=== PATIENT | male | born 1940 | race Caucasian/White ===

== ENCOUNTER → 2017-10-31 | Outpatient (CLI) | payer MEDICARE | END | disposition home or self-care (01) | LOC: US 15:47 | DX: R60.0 Localized edema (principal) | CPT/HCPCS: 93971 ==

== ENCOUNTER → 2019-09-04 | Outpatient (CLI) | payer MEDICARE ==
[~2019-09-04] MED LIST: REGADENOSON 0.4 MG/5 ML DISP.SYRIN. IV ONE
--- NOTE | 2019-09-04 11:19 | CARD ---
MR#: [id number] Date of Study: 09/04/2019 Ordering Physician: KAYLIE WILLAMS, Referring Physician: KAYLIE WILLMAS, Tech: Iwona Samsonelizabeth APPROVED REPORT EXAM: Two-dimensional and M-mode echocardiogram with Doppler and color Doppler. Other Information Quality : AverageHR: 69bpm Technically limited study due to INDICATION Pre-Op Murmur 2D DIMENSIONS RVDd3.5 (2.9-3.5cm)Left Atrium(2D)3.2 (1.6-4.0cm) IVSd1.5 (0.7-1.1cm)Aortic Root(2D)3.6 (2.0-3.7cm) LVDd4.2 (3.9-5.9cm)LVOT Diameter2.0 (1.8-2.4cm) PWd1.3 (0.7-1.1cm)LVDs2.4 (2.5-4.0cm) FS (%) 44.1 %SV60.8 ml LVEF(%)75.6 (>50%) Aortic Valve AoV Peak Flyod.157.3cm/sAoV VTI29.6cm AO Peak GR.9.9mmHgLVOT Peak Floyd.116.4cm/s LVOT VTI 25.89cmAO Mean GR.5mmHg MYA (VMAX)1.33iw8NWQ (VTI)2.77cm2 AI P 1/2 Csed814bk Mitral Valve MV E Lsgggliv34.3cm/sMV DECEL QEUF638pt MV A Arouiiuj27.2cm/sMV E Mean Gr.2mmHg MV FZC33zbM/A Ratio0.9 MVA (PHT)4.16cm2 TDI E/Lateral E'12.2E/Medial E'15.8 Pulmonary Valve PV Peak Mjjpjftt08.1cm/sPV Peak Grad.3mmHg Tricuspid Valve TR P. Uzwdzvkc224lh/sRAP ANVXOJME9xnOy TR Peak Gr.97abEgWTFB49ieYb Pulmonary Vein S1 Lldqfqjn47.3cm/sD2 Dtvuggdn33.4cm/s PVa [id number] LEFT VENTRICLE The left ventricle is normal size. There is mild to moderate concentric left ventricular hypertrophy. The left ventricular systolic function is normal and the ejection fraction is within normal range. T he Ejection Fraction is 60%. There is normal LV segmental wall motion. Transmitral Doppler flow patte rn is Grade I-abnormal relaxation pattern. RIGHT VENTRICLE The right ventricle is borderline dilated. There is normal right ventricular wall thickness. The righ t ventricular systolic function is normal. ATRIA The left atrium size is normal. The right atrium size is normal. The interatrial septum is intact wit h no evidence for an atrial septal defect or patent foramen ovale as noted on 2-D or Doppler imaging. AORTIC VALVE The aortic valve is heavily calcified/thickened Doppler and Color Flow revealed mild aortic regurgita tion. Calculated aortic valve area is 2.6 cm2 with maximum pressure gradient of 10 mmHg and mean pres sure gradient of 6 mmHg. MITRAL VALVE The mitral valve is thickened but opens well. There is no evidence of mitral valve prolapse. There is no mitral valve stenosis. Doppler and Color-flow revealed trace mitral regurgitation. TRICUSPID VALVE The tricuspid valve is normal in structure and function. Doppler and Color Flow revealed trace to mil d tricuspid regurgitation with an estimated PAP of 31 mmHg. There is no tricuspid valve stenosis. PULMONIC VALVE The pulmonic valve is not well visualized. Doppler and Color Flow revealed trace pulmonic valvular re gurgitation. There is no pulmonic valvular stenosis. GREAT VESSELS The aortic root is normal in size. The ascending aorta is normal in size. The IVC is normal in size a nd collapses >50% with inspiration. PERICARDIAL EFFUSION There is no evidence of significant pericardial effusion. Critical Notification Critical Value: No <Conclusion> There is mild to moderate concentric left ventricular hypertrophy. The left ventricular systolic function is normal and the ejection fraction is within normal range. Th e Ejection Fraction is 60%. There is normal LV segmental wall motion. Doppler and Color Flow revealed mild aortic regurgitation. Signed by : Robbie Kaplan, Electronically Approved : 09/04/2019 11:19:00
--- NOTE | 2019-09-04 13:50 | RAD ---
MR#: [id number] Date of Study: 09/04/2019 Ordering Physician: KAYLIE WILLAMS, Referring Physician: CALE RESENDIZ Tech: MANDY Mazariegos ARRT (R) (N) APPROVED REPORT Test Type: Pharmacological Stress Nurse/Tech: Antonette Mcrae R.N. Test Indications: ore-op Cardiac History: htn Medications: See Electronic Medical Record Medical History: See Electronic Medical Record Resting ECG: SR Resting Heart Rate: 65 bpm Resting Blood Pressure: 147/76mmHg Pretest Chest Pain: No chest pain Nurse/Tech Notes S1S2, lungs CTA Consent: The procedure was explained to the patient in lay terms. Informed consent was witnessed. Brendon eout was entered into [employer]. History and Stress Test performed by RT Samreen Meeks) (N) Pharm. Details Pharmacologic stress testing was performed using 0.4mg per 5ml of regadenoson given intravenously ove r 7-10 seconds. Stress Symptoms No chest pain or symptoms. POST EXERCISE Reason for Termination: Infusion complete Max HR: 88 bpm Max Blood Pressure: 135/60mmHg Blood Pressure response to exercise: Normal blood pressure response during stress. Heart Rate response to exercise: wnl Chest Pain: No. Arrhythmia: No. ST Change: No. INTERPRETATION Stress EKG Conclusion: No evidence of stress induced EKG changes. Imaging Protocol IMAGE PROTOCOL: Rest Tc-99m/stress Tc-99m 1 day Rest: Stress: Viability: Radiopharm.Tc99m HwjnlkvmaWx94g Sestamibi Pfse00lNm 33mCi Img Date 09/04/2019 09/04/2019 Inj-Img Lqpf16xjo. 60min. Rest Admin Site:IV - Right ForearmAdministrator:MANDY Mazariegos ARRT (R)(N) Stress Admin Site: IV - Right ForearmAdministrator: RT Samreen Meeks)(N) STRESS DATA End Diast. Vol.52.0mlLVEDV index BSA26.0ml End Syst. Vol.11.0mlLVESV index BSA5.0ml Myocardial Mass98.0gEject. Fcntqtlt89.0% Stress Scores Regional WT2.00Summed WT7.00 Regional WM0.00Summed WM1.00 The rest and stress images show normal perfusion, normal contraction and thickening. LV Perf. Quant 17 Seg. SSS0.00 17 Seg. SRS0.00 17 Seg. SDS0.00 Stress Defect Extent (% LAD)0.00Rest Defect Extent (% LAD)0.00Rev. Defect Extent (% LAD)0.00 Stress Defect Extent (% LCX) 0.00Rest Defect Extent (% LCX)0.00Rev. Defect Extent (% LCX)0.00 Stress Defect Extent (% RCA)0.00Rest Defect Extent (% RCA)0.00Rev. Defect Extent (% RCA)0.00 Stress Defect Extent (% MAG)0.00Rest Defect Extent (% MAG)0.00Rev. Defect Extent (% MAG)0.00 Other Information Quality:Fair Risk Assessment: Low Risk Conclusion 1. No evidence of EKG changes with stress testing. 2. Normal perfusion at stress/rest. 3. Low risk study. 4. EF > 60%. Signed by : Robbie Kaplan, Electronically Approved : 09/04/2019 13:49:59
== END ==
LOC: NM 07:53
PROVIDERS: ATTEND Internal Medicine Cardiovascular Disease
DX: Z01.810 Encounter for preprocedural cardiovascular examination (principal); R01.1 Cardiac murmur, unspecified; I35.1 Nonrheumatic aortic (valve) insufficiency; I51.7 Cardiomegaly
CPT/HCPCS: 78452; 93017; 93306; A9500; J2785

== ENCOUNTER 2020-01-09 11:49 | Inpatient (IN) | payer MEDICARE ==
[~2020-01-09] VITALS: Ht 177.8 cm; Wt 77.0 kg
[2020-01-09 13:36] LABS: BASO % 1 % (0-3); EOS # 0.2 x10^3/uL (0.0-0.7); EOS % 3 % (0-3); HEMATOCRIT 35.9 % (39.0-53.0); HEMOGLOBIN 12.5 g/dL (13.0-17.5); LYMPH # 0.8 x10^3/uL (1.0-4.8); LYMPH % 15 % (24-48); MEAN CORPUSCULAR HEMOGLOBIN 32 pg (25-35); MEAN CORPUSCULAR HGB CONC 35 g/dL (31-37); MEAN CORPUSCULAR VOLUME 91 fL (79-100); MONO # 0.6 x10^3/uL (0.0-1.1); MONO % 11 % (0-9); NEUT # 3.9 x10^3/uL (1.8-7.7); NEUT % 70 % (31-73); PLATELET COUNT 253 x10^3/uL (140-400); RED BLOOD COUNT 3.95 x10^6/uL (4.30-5.70); RED CELL DISTRIBUTION WIDTH 13.3 % (11.5-14.5); WHITE BLOOD COUNT 5.6 x10^3/uL (4.0-11.0)
[2020-01-09 13:44] LABS: CALCIUM 8.9 mg/dL (8.5-10.1); CREATININE 2.2 mg/dL (0.7-1.3); GFR 29.1; POTASSIUM 4.4 mmol/L (3.5-5.1)
--- NOTE | 2020-01-09 13:46 | RAD ---
Chest, PA and Lateral: Technique: PA and lateral views of the chest were obtained. History: Dizziness. Comparison: None. Findings: The heart and pulmonary vasculature appear within normal limits. Mild hyperinflated lungs probably changes of COPD.. The pleural margins are clear. Impression: No acute chest process is seen. Electronically signed by: Alban Saavedra MD (01/09/2020 1:43 PM) [id number]
[2020-01-09] MEDS ORDERED: IV NORMAL SALINE 1000ML BAG 1,000 ML IV ONE (14:00)
--- NOTE | 2020-01-09 14:48 | RAD ---
Examination: CT ABDOMEN PELVIS WO CONTRAST History: Reason: weight loss, kidney failure, abdominal pain / Spl. Instructions: / History: Comparison/Correlation: None Findings: Axial images of the abdomen and pelvis were obtained without contrast. Sagittal and coronal reformatted images were provided. Large hiatal hernia is present. Mitral annular calcification is normal. Mild emphysematous involvement of the lung bases posteriorly. Liver, spleen, pancreas, adrenal glands, and kidneys are unremarkable. No hydronephrosis. No radiopaque thickening system calculi. Urinary bladder is unremarkable. Gallbladder fossa is unremarkable. Diverticulosis of the colon is present diffusely. No evidence of obstruction. No extraluminal gas. Significant disc space narrowing from L3 to S1 noted. Transitional L5 vertebra seen. Sacralization of L5. Room Marked diverticulosis of the colon is present. Appendix is not identified. No inflammatory change about the cecum. Significant calcific involvement of the abdominal aorta. Prostate gland is enlarged measuring 5 cm transverse. Bladder is unremarkable. Small inguinal hernias containing omental fat bilaterally noted. Sclerosis of femoral heads bilaterally noted in subchondral location there is an AVN. Femoral head contours are unremarkable. Impression: Diverticulosis. No acute inflammatory process or mass identified. Large hiatal hernia. Mild prostatomegaly. PQRS Compliance Statement: One or more of the following individualized dose reduction techniques were utilized for this examination: 1. Automated exposure control 2. Adjustment of the mA and/or kV according to patient size 3. Use of iterative reconstruction technique Electronically signed by: Uvaldo Paulino MD (01/09/2020 2:44 PM) [id number]
[2020-01-09 14:49] LABS: BILIRUBIN,URINE NEGATIVE (NEG); CLARITY,URINE CLEAR; COLOR,URINE YELLOW; NITRITE,URINE NEGATIVE (NEG); PROTEIN,URINE NEGATIVE (NEG-TRACE); UROBILINOGEN,URINE 0.2 mg/dL (0.2 mg/dL)
[2020-01-09 14:59] LABS: HYALINE CASTS, URINE FEW /HPF; RBC,URINE 0 /HPF (0-2); WBC,URINE OCC /HPF (0-4)
[2020-01-09 15:00] LABS: BACTERIA,URINE 0 /HPF (0-FEW)
[2020-01-09 15:28] LABS: ALBUMIN 3.8 g/dL (3.4-5.0); DIRECT BILIRUBIN 0.2 mg/dL (0.0-0.2); TOTAL BILIRUBIN 0.6 mg/dL (0.2-1.0); TOTAL PROTEIN 6.8 g/dL (6.4-8.2)
--- NOTE | 2020-01-09 16:46 | PHYS DOC ---
Past Medical History Past Medical History: GERD, High Cholesterol, Hypertension Past Surgical History: Appendectomy, Knee Replacement, Other Additional Past Surgical Histo: rotator cuff Smoking Status: Former Smoker Alcohol Use: Occasionally General Adult EDM: Chief Complaint: ABNORMAL LABS HPI: HPI: Patient is a 79 year old male who presents with weight loss, fatigue. Patient had a knee replacement done 1 month ago. Prior to that he was feeling very well. He states that after his knee replacement he has had a lot of fatigue. He has lost 20 pounds over the last month. He is lost his sense of taste and nothing sounds good to him. He has not been eating much. He does drink a large amount of water. He has been having intermittent diarrhea. He denies any shortness of breath, cough, URI symptoms, fever. He went to his primary care doctor yesterday who did labs and found that he had an acute kidney injury. Prior to his surgery he had labs drawn in November that showed that his creatinine at that time was 0.6. She found that his creatinine was 2.4 and so she was sending him here for evaluation. Patient states he has intermittent lightheadedness and blurred vision. He denies any abdominal pain. He does not have any chest pain. Review of Systems: Review of Systems: General: Denies fever, chills, sweats, fatigue Eyes: Denies drainage, blurred vision, eye redness HENT: Denies rhinorrhea, sore throat, earache Respiratory: Denies cough, shortness of breath, wheezing Cardiac: Denies edema, palpitations, chest pain GI: Denies abdominal pain, Nausea, vomiting MSK: Denies back pain, neck pain Skin: Denies rash, jaundice Neuro: Denies headache, dizziness Psychiatric: Denies SI/HI Heart Score: Risk Factors: Risk Factors: DM, Current or recent (<one month) smoker, HTN, HLP, family history of CAD, obesity. Risk Scores: Score 0 - 3: 2.5% MACE over next 6 weeks - Discharge Home Score 4 - 6: 20.3% MACE over next 6 weeks - Admit for Clinical Observation Score 7 - 10: 72.7% MACE over next 6 weeks - Early Invasive Strategies Current Medications: Current Medications Medications (Trade) Dose Ordered Sig/Ton Start Time Stop Time Status Last Admin Dose Admin Sodium Chloride 1,000 ml @ 0 mls/hr 1X ONCE 01/09/20 14:00 01/09/20 14:01 DC 01/09/20 14:53 999 MLS/HR Allergies: Allergies: Allergies Coded Allergies Type Severity Reaction Last Updated Verified No Known Drug Allergies 09/04/19 No Physical Exam: PE: General: Awake, alert, NAD. Well Nourished, well hydrated. Cooperative HEENT: Atraumatic, EOMI, PERRL, airway patent, moist oral mucosa Neck: Supple, trachea midline Respiratory: CTA bilaterally, normal effort, no wheezing/crackles CV: RRR, no murmur, cap refill <2 GI: Soft, nondistended, nontender, no masses MSK: No obvious deformities Skin: Warm, dry, intact Neuro: A&O x3, speech NL, sensory and motor grossly intact, no focal deficits Psych: Normal affect, normal mood, not suicidal or homicidal Current Patient Data: Labs: Laboratory Tests Test 01/09/20 13:20 01/09/20 14:41 White Blood Count 5.6 x10^3/uL (4.0-11.0) Red Blood Count 3.95 x10^6/uL (4.30-5.70) L Hemoglobin 12.5 g/dL (13.0-17.5) L Hematocrit 35.9 % (39.0-53.0) L Mean Corpuscular Volume 91 fL (79-100) Mean Corpuscular Hemoglobin 32 pg (25-35) Mean Corpuscular Hemoglobin Concent 35 g/dL (31-37) Red Cell Distribution Width 13.3 % (11.5-14.5) Platelet Count 253 x10^3/uL (140-400) Neutrophils (%) (Auto) 70 % (31-73) Lymphocytes (%) (Auto) 15 % (24-48) L Monocytes (%) (Auto) 11 % (0-9) H Eosinophils (%) (Auto) 3 % (0-3) Basophils (%) (Auto) 1 % (0-3) Neutrophils # (Auto) 3.9 x10^3/uL (1.8-7.7) Lymphocytes # (Auto) 0.8 x10^3/uL (1.0-4.8) L Monocytes # (Auto) 0.6 x10^3/uL (0.0-1.1) Eosinophils # (Auto) 0.2 x10^3/uL (0.0-0.7) Basophils # (Auto) 0.0 x10^3/uL (0.0-0.2) Sodium Level 130 mmol/L (136-145) L Potassium Level 4.4 mmol/L (3.5-5.1) Chloride Level 93 mmol/L (98-107) L Carbon Dioxide Level 27 mmol/L (21-32) Anion Gap 10 (6-14) Blood Urea Nitrogen 45 mg/dL (8-26) H Creatinine 2.2 mg/dL (0.7-1.3) H Estimated GFR (Cockcroft-Gault) 29.1 Glucose Level 100 mg/dL (70-99) H Calcium Level 8.9 mg/dL (8.5-10.1) Total Bilirubin 0.6 mg/dL (0.2-1.0) Direct Bilirubin 0.2 mg/dL (0.0-0.2) Aspartate Amino Transferase (AST) 14 U/L (15-37) L Alanine Aminotransferase (ALT) 19 U/L (16-63) Alkaline Phosphatase 60 U/L (46-116) Troponin I Quantitative < 0.017 ng/mL (0.000-0.055) Total Protein 6.8 g/dL (6.4-8.2) Albumin 3.8 g/dL (3.4-5.0) Lipase 99 U/L (73-393) Urine Collection Type Unknown Urine Color Yellow Urine Clarity Clear Urine pH 5.0 (<5.0-8.0) Urine Specific [place] 1.015 (1.000-1.030) Urine Protein Negative mg/dL (NEG-TRACE) Urine Glucose (UA) Negative mg/dL (NEG) Urine Ketones (Stick) Trace mg/dL (NEG) Urine Blood Negative (NEG) Urine Nitrite Negative (NEG) Urine Bilirubin Negative (NEG) Urine Urobilinogen Dipstick 0.2 mg/dL (0.2 mg/dL) Urine Leukocyte Esterase Negative (NEG) Urine RBC 0 /HPF (0-2) Urine WBC Occ /HPF (0-4) Urine Bacteria 0 /HPF (0-FEW) Urine Hyaline Casts Few /HPF Urine Mucus Mod /LPF Laboratory Tests 7/8/20 13:20 Laboratory Tests 01/09/20 13:20 Vital Signs: Vital Signs Date Time Temp Pulse Resp B/P (MAP) Pulse Ox O2 Delivery O2 Flow Rate FiO2 01/09/20 14:48 78 20 139/67 (91) 93 Room Air 01/09/20 13:15 97.7 97.7 EKG: EKG: [] Radiology/Procedures: Radiology/Procedures: [] Course & Med Decision Making: Course & Med Decision Making Pertinent Labs and Imaging studies reviewed. (See chart for details) Patient is a 79-year-old male who presents to the emergency room with weight loss and fatigue. Labs show the patient has an acute kidney injury that is likely prerenal. He was given fluids. He did have some hypotension yesterday which is now resolved. Labs are otherwise unremarkable. Patient's symptoms could be related to possible coronavirus. He does have a pending test from his primary care physician from yesterday. Will not swab him today given that he has a test currently pending. CT abdomen pelvis was ordered to rule out infection or a mass which would explain his weight loss. CT was negative for acute issues. Patient will be admitted for further care. Work up was rviewed and was remarkable for acute kidney injury. At this time, patient would benefit from further work up and management. Patient is not stable for discharge at this time. Results, vitals, interventions, and plan was discussed with the patient. Patient was given opportunity to ask any questions and are in agreement with plan for admission. Patient was discussed with admitting physician and bridge admission orders were placed. Further care will be managed by inpatient team. Keegan Disclaimer: Keegan Disclaimer: This electronic medical record was generated, in whole or in part, using a voice recognition dictation system. Departure Departure Impression: Primary Impression: Acute kidney injury Additional Impressions: Weight loss Loss of taste Disposition: ADMITTED INPATIENT Condition: STABLE Referrals: JOSE FLORES MD (PCP) Justicifation of Admission Dx: Justifications for Admission: Justification of Admission Dx: Yes Acute Renal Failure: 3-Fold Rise in Serum Crea MODESTA BETTS MD Jan 09, 2020 16:46
--- NOTE | 2020-01-09 17:14 | PDOC1 ---
History and Physical Date of Admission Date of Admission DATE: 01/09/20 TIME: 17:14 Identification/Chief Complaint Chief Complaint presented to ER with weight loss, fatigue. Patient had a knee replacement done 1 month ago. Prior to that he was feeling very well. // after his knee replacement he has had a lot of fatigue. He has lost 20 pounds over the last month. HAS lost his sense of taste and nothing sounds good to him. He has not been eating much. He does drink a large amount of water. He has been having intermittent diarrhea. denies any shortness of breath, cough, URI symptoms, fever. He went to his primary care doctor yesterday who did labs and found that he had an acute kidney injury. Prior to his surgery he had labs drawn in November that showed that his creatinine at that time was 0.6. She found that his creatinine was 2.4 and so she was sending him here for evaluation. // he has intermittent lightheadedness and blurred vision. He denies any abdominal pain. He does not have any chest pain. Past Medical History Past Medical History Past Medical History: GERD, High Cholesterol, Hypertension Past Surgical History: Appendectomy, Knee Replacement, Other Additional Past Surgical Histo: rotator cuff Smoking Status: Former Smoker Alcohol Use: Occasionally FHX HYPERLIPIDEMIA Family History Family History: High Cholestrol, Hypertension Social History Smoke: No ALCOHOL: none Drugs: None Current Problem List Problem List Problems Medical Problems: (1) Acute kidney injury Status: Acute (2) Loss of taste Status: Acute (3) Weight loss Status: Acute Current Medications Current Medications Current Medications Sodium Chloride 1,000 ml @ 0 mls/hr 1X ONCE IV Last administered on 01/09/20at 14:53; Start 01/09/20 at 14:00; Stop 01/09/20 at 14:01; Status DC Allergies Allergies: Coded Allergies: No Known Drug Allergies (Unverified , 09/04/19) ROS Review of System General: Denies fever, chills, sweats, fatigue Eyes: Denies drainage, blurred vision, eye redness HENT: Denies rhinorrhea, sore throat, earache Respiratory: Denies cough, shortness of breath, wheezing Cardiac: Denies edema, palpitations, chest pain GI: Denies abdominal pain, Nausea, vomiting MSK: Denies back pain, neck pain Skin: Denies rash, jaundice Neuro: Denies headache, dizziness 14 PT ROS OTHERWISE NEG Physical Exam Physical Exam General: Awake, alert, NAD. Well Nourished, well hydrated. Cooperative HEENT: Atraumatic, EOMI, PERRL, airway patent, moist oral mucosa Neck: Supple, trachea midline Respiratory: CTA bilaterally, normal effort, no wheezing/crackles CV: RRR, no murmur, cap refill <2 GI: Soft, nondistended, nontender, no masses MSK: No obvious deformities Skin: Warm, dry, intact Neuro: A&O x3, speech NL, sensory and motor grossly intact, no focal deficits Psych: Normal affect, normal mood, General: Alert, Oriented X3, Cooperative, No acute distress HEENT: Atraumatic, Mucous membr. moist/pink Lungs: Clear to auscultation Heart: RRR Rectal Exam: not examined Extremities: No clubbing, No cyanosis Neuro: Normal speech, Cranial nerves 3-12 NL Vitals Vitals Vital Signs Date Time Temp Pulse Resp B/P (MAP) Pulse Ox O2 Delivery O2 Flow Rate FiO2 01/09/20 14:48 78 20 139/67 (91) 93 Room Air 01/09/20 13:15 97.7 97.7 Labs Labs Laboratory Tests Test 01/09/20 13:20 01/09/20 14:41 White Blood Count 5.6 x10^3/uL (4.0-11.0) Red Blood Count 3.95 x10^6/uL (4.30-5.70) Hemoglobin 12.5 g/dL (13.0-17.5) Hematocrit 35.9 % (39.0-53.0) Mean Corpuscular Volume 91 fL (79-100) Mean Corpuscular Hemoglobin 32 pg (25-35) Mean Corpuscular Hemoglobin Concent 35 g/dL (31-37) Red Cell Distribution Width 13.3 % (11.5-14.5) Platelet Count 253 x10^3/uL (140-400) Neutrophils (%) (Auto) 70 % (31-73) Lymphocytes (%) (Auto) 15 % (24-48) Monocytes (%) (Auto) 11 % (0-9) Eosinophils (%) (Auto) 3 % (0-3) Basophils (%) (Auto) 1 % (0-3) Neutrophils # (Auto) 3.9 x10^3/uL (1.8-7.7) Lymphocytes # (Auto) 0.8 x10^3/uL (1.0-4.8) Monocytes # (Auto) 0.6 x10^3/uL (0.0-1.1) Eosinophils # (Auto) 0.2 x10^3/uL (0.0-0.7) Basophils # (Auto) 0.0 x10^3/uL (0.0-0.2) Sodium Level 130 mmol/L (136-145) Potassium Level 4.4 mmol/L (3.5-5.1) Chloride Level 93 mmol/L (98-107) Carbon Dioxide Level 27 mmol/L (21-32) Anion Gap 10 (6-14) Blood Urea Nitrogen 45 mg/dL (8-26) Creatinine 2.2 mg/dL (0.7-1.3) Estimated GFR (Cockcroft-Gault) 29.1 Glucose Level 100 mg/dL (70-99) Calcium Level 8.9 mg/dL (8.5-10.1) Total Bilirubin 0.6 mg/dL (0.2-1.0) Direct Bilirubin 0.2 mg/dL (0.0-0.2) Aspartate Amino Transf (AST/SGOT) 14 U/L (15-37) Alanine Aminotransferase (ALT/SGPT) 19 U/L (16-63) Alkaline Phosphatase 60 U/L (46-116) Troponin I Quantitative < 0.017 ng/mL (0.000-0.055) Total Protein 6.8 g/dL (6.4-8.2) Albumin 3.8 g/dL (3.4-5.0) Lipase 99 U/L (73-393) Urine Collection Type Unknown Urine Color Yellow Urine Clarity Clear Urine pH 5.0 (<5.0-8.0) Urine Specific [place] 1.015 (1.000-1.030) Urine Protein Negative mg/dL (NEG-TRACE) Urine Glucose (UA) Negative mg/dL (NEG) Urine Ketones (Stick) Trace mg/dL (NEG) Urine Blood Negative (NEG) Urine Nitrite Negative (NEG) Urine Bilirubin Negative (NEG) Urine Urobilinogen Dipstick 0.2 mg/dL (0.2 mg/dL) Urine Leukocyte Esterase Negative (NEG) Urine RBC 0 /HPF (0-2) Urine WBC Occ /HPF (0-4) Urine Bacteria 0 /HPF (0-FEW) Urine Hyaline Casts Few /HPF Urine Mucus Mod /LPF Laboratory Tests Test 01/09/20 13:20 01/09/20 14:41 White Blood Count 5.6 x10^3/uL (4.0-11.0) Red Blood Count 3.95 x10^6/uL (4.30-5.70) Hemoglobin 12.5 g/dL (13.0-17.5) Hematocrit 35.9 % (39.0-53.0) Mean Corpuscular Volume 91 fL (79-100) Mean Corpuscular Hemoglobin 32 pg (25-35) Mean Corpuscular Hemoglobin Concent 35 g/dL (31-37) Red Cell Distribution Width 13.3 % (11.5-14.5) Platelet Count 253 x10^3/uL (140-400) Neutrophils (%) (Auto) 70 % (31-73) Lymphocytes (%) (Auto) 15 % (24-48) Monocytes (%) (Auto) 11 % (0-9) Eosinophils (%) (Auto) 3 % (0-3) Basophils (%) (Auto) 1 % (0-3) Neutrophils # (Auto) 3.9 x10^3/uL (1.8-7.7) Lymphocytes # (Auto) 0.8 x10^3/uL (1.0-4.8) Monocytes # (Auto) 0.6 x10^3/uL (0.0-1.1) Eosinophils # (Auto) 0.2 x10^3/uL (0.0-0.7) Basophils # (Auto) 0.0 x10^3/uL (0.0-0.2) Sodium Level 130 mmol/L (136-145) Potassium Level 4.4 mmol/L (3.5-5.1) Chloride Level 93 mmol/L (98-107) Carbon Dioxide Level 27 mmol/L (21-32) Anion Gap 10 (6-14) Blood Urea Nitrogen 45 mg/dL (8-26) Creatinine 2.2 mg/dL (0.7-1.3) Estimated GFR (Cockcroft-Gault) 29.1 Glucose Level 100 mg/dL (70-99) Calcium Level 8.9 mg/dL (8.5-10.1) Total Bilirubin 0.6 mg/dL (0.2-1.0) Direct Bilirubin 0.2 mg/dL (0.0-0.2) Aspartate Amino Transf (AST/SGOT) 14 U/L (15-37) Alanine Aminotransferase (ALT/SGPT) 19 U/L (16-63) Alkaline Phosphatase 60 U/L (46-116) Troponin I Quantitative < 0.017 ng/mL (0.000-0.055) Total Protein 6.8 g/dL (6.4-8.2) Albumin 3.8 g/dL (3.4-5.0) Lipase 99 U/L (73-393) Urine Collection Type Unknown Urine Color Yellow Urine Clarity Clear Urine pH 5.0 (<5.0-8.0) Urine Specific [place] 1.015 (1.000-1.030) Urine Protein Negative mg/dL (NEG-TRACE) Urine Glucose (UA) Negative mg/dL (NEG) Urine Ketones (Stick) Trace mg/dL (NEG) Urine Blood Negative (NEG) Urine Nitrite Negative (NEG) Urine Bilirubin Negative (NEG) Urine Urobilinogen Dipstick 0.2 mg/dL (0.2 mg/dL) Urine Leukocyte Esterase Negative (NEG) Urine RBC 0 /HPF (0-2) Urine WBC Occ /HPF (0-4) Urine Bacteria 0 /HPF (0-FEW) Urine Hyaline Casts Few /HPF Urine Mucus Mod /LPF Images Images TDI E/Lateral E' 12.2 E/Medial E' 15.8 Pulmonary Valve PV Peak Velocity 83.1cm/s PV Peak Grad. 3mmHg Tricuspid Valve TR P. Velocity 261cm/s RAP ESTIMATE 3mmHg TR Peak Gr. 28mmHg RVSP 31mmHg Pulmonary Vein S1 Velocity 74.3cm/s D2 Velocity 34.4cm/s PVa duration 124msec LEFT VENTRICLE The left ventricle is normal size. There is mild to moderate concentric left ventricular hypertrophy. The left ventricular systolic function is normal and the ejection fraction is within normal range. The Ejection Fraction is 60%. There is normal LV segmental wall motion. Transmitral Doppler flow pattern is Grade I-abnormal relaxation pattern. RIGHT VENTRICLE The right ventricle is borderline dilated. There is normal right ventricular wall thickness. The right ventricular systolic function is normal. ATRIA The left atrium size is normal. The right atrium size is normal. The interatrial septum is intact with no evidence for an atrial septal defect or patent foramen ovale as noted on 2-D or Doppler imaging. AORTIC VALVE The aortic valve is heavily calcified/thickened Doppler and Color Flow revealed mild aortic regurgitation. Calculated aortic valve area is 2.6 cm2 with maximum pressure gradient of 10 mmHg and mean pressure gradient of 6 mmHg. MITRAL VALVE The mitral valve is thickened but opens well. There is no evidence of mitral valve prolapse. There is no mitral valve stenosis. Doppler and Color-flow revealed trace mitral regurgitation. TRICUSPID VALVE The tricuspid valve is normal in structure and function. Doppler and Color Flow revealed trace to mild tricuspid regurgitation with an estimated PAP of 31 mmHg. There is no tricuspid valve stenosis. PULMONIC VALVE The pulmonic valve is not well visualized. Doppler and Color Flow revealed trace pulmonic valvular regurgitation. There is no pulmonic valvular stenosis. GREAT VESSELS The aortic root is normal in size. The ascending aorta is normal in size. The IVC is normal in size and collapses >50% with inspiration. PERICARDIAL EFFUSION There is no evidence of significant pericardial effusion. Critical Notification Critical Value: No <Conclusion> There is mild to moderate concentric left ventricular hypertrophy. The left ventricular systolic function is normal and the ejection fraction is within normal range. The Ejection Fraction is 60%. There is normal LV segmental wall motion. Doppler and Color Flow revealed mild aortic regurgitation. Signed by : Andreina Kaplan, Electronically Approved : 09/04/2019 11:19:00 Examination: CT ABDOMEN PELVIS WO CONTRAST History: Reason: weight loss, kidney failure, abdominal pain / Spl. Instructions: / History: Comparison/Correlation: None Findings: Axial images of the abdomen and pelvis were obtained without contrast. Sagittal and coronal reformatted images were provided. Large hiatal hernia is present. Mitral annular calcification is normal. Mild emphysematous involvement of the lung bases posteriorly. Liver, spleen, pancreas, adrenal glands, and kidneys are unremarkable. No hydronephrosis. No radiopaque thickening system calculi. Urinary bladder is unremarkable. Gallbladder fossa is unremarkable. Diverticulosis of the colon is present diffusely. No evidence of obstruction. No extraluminal gas. Significant disc space narrowing from L3 to S1 noted. Transitional L5 vertebra seen. Sacralization of L5. Room Marked diverticulosis of the colon is present. Appendix is not identified. No inflammatory change about the cecum. Significant calcific involvement of the abdominal aorta. Prostate gland is enlarged measuring 5 cm transverse. Bladder is unremarkable. Small inguinal hernias containing omental fat bilaterally noted. Sclerosis of femoral heads bilaterally noted in subchondral location there is an AVN. Femoral head contours are unremarkable. Impression: Diverticulosis. No acute inflammatory process or mass identified. Large hiatal hernia. Mild prostatomegaly. PQRS Compliance Statement: One or more of the following individualized dose reduction techniques were utilized for this examination: 1. Automated exposure control 2. Adjustment of the mA and/or kV according to patient size 3. Use of iterative reconstruction technique Electronically signed by: Uvaldo Doherty MD (01/09/2020 2:44 PM) [id number] DICTATED and SIGNED BY: UVALDO DOHERTY MD DATE: 01/09/20 1444 History: Reason: weight loss, kidney failure, abdominal pain / Spl. Instructions: / History: Comparison/Correlation: None Findings: Axial images of the abdomen and pelvis were obtained without contrast. Sagittal and coronal reformatted images were provided. Large hiatal hernia is present. Mitral annular calcification is normal. Mild emphysematous involvement of the lung bases posteriorly. Liver, spleen, pancreas, adrenal glands, and kidneys are unremarkable. No hydronephrosis. No radiopaque thickening system calculi. Urinary bladder is unremarkable. Gallbladder fossa is unremarkable. Diverticulosis of the colon is present diffusely. No evidence of obstruction. No extraluminal gas. Significant disc space narrowing from L3 to S1 noted. Transitional L5 vertebra seen. Sacralization of L5. Room Marked diverticulosis of the colon is present. Appendix is not identified. No inflammatory change about the cecum. Significant calcific involvement of the abdominal aorta. Prostate gland is enlarged measuring 5 cm transverse. Bladder is unremarkable. Small inguinal hernias containing omental fat bilaterally noted. Sclerosis of femoral heads bilaterally noted in subchondral location there is an AVN. Femoral head contours are unremarkable. Impression: Diverticulosis. No acute inflammatory process or mass identified. Large hiatal hernia. Mild prostatomegaly. PQRS Compliance Statement: One or more of the following individualized dose reduction techniques were utilized for this examination: LEFT VENTRICLE The left ventricle is normal size. There is mild to moderate concentric left ventricular hypertrophy. The left ventricular systolic function is normal and the ejection fraction is within normal range. The Ejection Fraction is 60%. There is normal LV segmental wall motion. Transmitral Doppler flow pattern is Grade I-abnormal relaxation pattern. RIGHT VENTRICLE The right ventricle is borderline dilated. There is normal right ventricular wall thickness. The right ventricular systolic function is normal. ATRIA The left atrium size is normal. The right atrium size is normal. The interatrial septum is intact with no evidence for an atrial septal defect or patent foramen ovale as noted on 2-D or Doppler imaging. AORTIC VALVE The aortic valve is heavily calcified/thickened Doppler and Color Flow revealed mild aortic regurgitation. Calculated aortic valve area is 2.6 cm2 with maximum pressure gradient of 10 mmHg and mean pressure gradient of 6 mmHg. MITRAL VALVE The mitral valve is thickened but opens well. There is no evidence of mitral valve prolapse. There is no mitral valve stenosis. Doppler and Color-flow revealed trace mitral regurgitation. TRICUSPID VALVE The tricuspid valve is normal in structure and function. Doppler and Color Flow revealed trace to mild tricuspid regurgitation with an estimated PAP of 31 mmHg. There is no tricuspid valve stenosis. PULMONIC VALVE The pulmonic valve is not well visualized. Doppler and Color Flow revealed trace pulmonic valvular regurgitation. There is no pulmonic valvular stenosis. GREAT VESSELS The aortic root is normal in size. The ascending aorta is normal in size. The IVC is normal in size and collapses >50% with inspiration. PERICARDIAL EFFUSION There is no evidence of significant pericardial effusion. Critical Notification Critical Value: No <Conclusion> There is mild to moderate concentric left ventricular hypertrophy. The left ventricular systolic function is normal and the ejection fraction is within normal range. The Ejection Fraction is 60%. There is normal LV segmental wall motion. Doppler and Color Flow revealed mild aortic regurgitation. Signed by : Andreina Kaplan, Electronically Approved : 09/04/2019 11:19:00 DICTATED and SIGNED BY: ANDREINA KAPLAN MD DATE: 09/04/19 1050 VTE Prophylaxis Ordered VTE Prophylaxis Devices: Yes VTE Pharmacological Prophylaxi: Yes Assessment/Plan Assessment/Plan impression ACUTE Renal injury Ageusia ie loss of taste, concerning for Covid-19 syndrome Large hiatal hernia is present. Mitral annular calcification is normal. Mild emphysematous involvement of the lung bases Sclerosis of femoral heads bilaterally noted in subchondral location there is an AVN. Unintentional weight loss of 20 lbs, concern for occult malignancy PLAN ADMIT covid-19 screen iv fluid support Consult nephrology Consult pulm dvt prophylaxis sq lovenox 40 mg sq bid Justicifation of Admission Dx: Justifications for Admission: Justification of Admission Dx: Yes Acute Renal Failure: 3-Fold Rise in Serum Crea VERONICA ESCALERA MD Jan 09, 2020 17:14
[2020-01-09 19:05] VITALS: BP 147/75
[2020-01-09] MEDS ORDERED: OMEP40CA45 PO (20:33)
[2020-01-09] MEDS ORDERED: CETI10TA74 PO (20:33)
[2020-01-09] MEDS ORDERED: olmesartan PO (20:33)
[2020-01-09] MEDS ORDERED: SIMV40TA18 PO (20:33)
[2020-01-09] MEDS ORDERED: ASPI-886 PO (20:33)
[2020-01-09] MEDS ORDERED: TRIA1TAB3 PO (20:33)
[2020-01-09] MEDS ORDERED: ACET325T9 PO (20:33)
[2020-01-09] MEDS ORDERED: CALC-31 PO (20:33)
[2020-01-09] MEDS ORDERED: DOCUSATE SODIUM 100 MG CAPSULE. PO PRN (20:45)
[2020-01-09] MEDS ORDERED: guaiFENesin ORAL 200 MG/10 ML LIQUID. PO PRN (20:45)
[2020-01-09] MEDS ORDERED: ALBUTEROL SULFATE 2.5 MG/3 ML NEBU. NEB PRN (20:45)
[2020-01-09] MEDS ORDERED: ACETAMINOPHEN 325 MG TABLET. PO PRN (20:45)
[2020-01-09] MEDS ORDERED: 0.9 % SODIUM CHLORIDE 10 ML DISP.SYRIN. IV PRN (20:45)
[2020-01-09] MEDS ORDERED: ONDANSETRON PF 4 MG/2 ML VIAL. IV PRN (20:45)
[2020-01-09] MEDS ORDERED: ENOXAPARIN 40 MG/0.4 ML SYRINGE. SQ SCH (21:00)
[2020-01-09] MEDS: IV NORMAL SALINE 1000ML BAG 1,000 ML IV SCH (23:15)
[2020-01-09] MEDS: ENOXAPARIN 40 MG/0.4 ML SYRINGE. SQ SCH (23:16)
[2020-01-09 23:37] VITALS: BP 114/52
--- NOTE | 2020-01-10 01:17 | NUR ---
Covid test done @ doctors office/report
[2020-01-10 03:00] VITALS: BP 141/65
[2020-01-10 04:44] LABS: BASO % 1 % (0-3); EOS # 0.2 x10^3/uL (0.0-0.7); EOS % 4 % (0-3); HEMATOCRIT 32.2 % (39.0-53.0); HEMOGLOBIN 11.3 g/dL (13.0-17.5); LYMPH % 21 % (24-48); MEAN CORPUSCULAR HEMOGLOBIN 32 pg (25-35); MEAN CORPUSCULAR HGB CONC 35 g/dL (31-37); MEAN CORPUSCULAR VOLUME 92 fL (79-100); MONO # 0.6 x10^3/uL (0.0-1.1); MONO % 12 % (0-9); NEUT # 3.1 x10^3/uL (1.8-7.7); NEUT % 63 % (31-73); PLATELET COUNT 188 x10^3/uL (140-400); RED BLOOD COUNT 3.52 x10^6/uL (4.30-5.70); RED CELL DISTRIBUTION WIDTH 13.3 % (11.5-14.5); WHITE BLOOD COUNT 4.9 x10^3/uL (4.0-11.0)
[2020-01-10 05:23] LABS: ALBUMIN 3.2 g/dL (3.4-5.0); ALBUMIN/GLOBULIN RATIO 1.5 (1.0-1.7); CALCIUM 8.4 mg/dL (8.5-10.1); CREATININE 1.4 mg/dL (0.7-1.3); POTASSIUM 4.2 mmol/L (3.5-5.1); TOTAL BILIRUBIN 0.3 mg/dL (0.2-1.0); TOTAL PROTEIN 5.4 g/dL (6.4-8.2)
--- NOTE | 2020-01-10 06:14 | EKG ---
[facility] [address] [place] [address] Test Date: 2020-01-09 Test Time: 13:17:57 Pat Name: MITA LEAHY Department: Room: Gender: M Perioperative Assistant: : 1940 Requested By: MODESTA BETTS Order Number: [id number] Reading MD: Measurements Intervals [place] Rate: 76 P: 28 IN: 160 QRS: -19 QRSD: 84 T: 15 QT: 350 QTc: 398 Interpretive Statements SINUS RHYTHM LEFTWARD AXIS OTHERWISE NORMAL ECG RI6.02 Compared to ECG 01/09/2020 13:16:34 No significant changes
[2020-01-10 07:00] VITALS: BP 132/71
[2020-01-10] MEDS: ENOXAPARIN 40 MG/0.4 ML SYRINGE. SQ SCH ×2 (09:26→20:46)
[2020-01-10] MEDS: IV NORMAL SALINE 1000ML BAG 1,000 ML IV SCH ×2 (09:27→20:44)
[2020-01-10 11:00] VITALS: BP 132/62
--- NOTE | 2020-01-10 11:04 | PDOC2 ---
CONSULT Date of Consult Date of Consult DATE: 01/10/20 TIME: 10:48 Reason for Consult Reason for Consult: RITA Source Source: Chart review, Patient History of Present Illness Reason for Visit: Pt is a 79 yo CM presented to ER on 01/08 with c/o weight loss and fatigue. He had a knee replacement done 1 month ago and he was feeling well prior to that Since after his knee replacement he started feeling very tired He states he has lost 20 pounds over the last month. He has lost his sense of taste and he has not been eating much. He does drink plenty of water. Denies any N/V . He has been having intermittent diarrhea, no abdominal pain . Denies SOB or CP . No Cough,URI symptoms, fever or chills . C/O intermittent lightheadedness and blurred vision He had am appt with his PCP and found that he had an acute kidney injury. He denies any urinary complaints Prior to his surgery he had labs drawn in November that showed that his creatinine at that time was 0.6. Past Medical History Past Medical History GERD, High Cholesterol, Hypertension Past Surgical History Past Surgical History Appendectomy, Knee Replacement, rotator cuff Family History Family History High Cholestrol, Hypertension Family History: High Cholestrol, Hypertension Social History Social History Former Smoker, Alcohol Use: Occasionally No ALCOHOL: none Drugs: None Current Problem List Problem List Problems Medical Problems: (1) Acute kidney injury Status: Acute (2) Loss of taste Status: Acute (3) Weight loss Status: Acute Current Medications Current Medications Current Medications Sodium Chloride 1,000 ml @ 0 mls/hr 1X ONCE IV Last administered on 01/09/20at 14:53; Start 01/09/20 at 14:00; Stop 01/09/20 at 14:01; Status DC Sodium Chloride (Normal Saline Flush) 3 ml QSHIFT PRN IV AFTER MEDS AND BLOOD DRAWS; Start 01/09/20 at 20:45 Sodium Chloride 1,000 ml @ 80 mls/hr [id number] IV Last administered on 01/10/20at 09:27; Start 01/09/20 at 20:38 Ondansetron HCl (Zofran) 4 mg PRN Q4HRS PRN IV NAUSEA/VOMITING; Start 01/09/20 at 20:45 Acetaminophen (Tylenol) 650 mg PRN Q4HRS PRN PO TEMP OVER 100.4F OR MILD PAIN; Start 01/09/20 at 20:45 Docusate Sodium (Colace) 100 mg PRN BID PRN PO HARD STOOLS; Start 01/09/20 at 20:45 Albuterol Sulfate (Ventolin Neb Soln) 2.5 mg PRN Q4HRS PRN NEB SHORTNESS OF BREATH; Start 01/09/20 at 20:45 Guaifenesin (Robitussin) 200 mg PRN Q4HRS PRN PO COUGH; Start 01/09/20 at 20:45 Enoxaparin Sodium (Lovenox 40mg Syringe) 40 mg Q24H SQ ; Start 01/09/20 at 21:00; Stop 01/09/20 at 20:53; Status DC Enoxaparin Sodium (Lovenox 40mg Syringe) 40 mg BID SQ Last administered on 01/10/20at 09:26; Start 01/09/20 at 21:00 Active Scripts Active Reported Zyrtec (Cetirizine Hcl) 10 Mg Tablet 1 Tab PO DAILY Tylenol (Acetaminophen) 325 Mg Tablet 2 Tab PO PRN Q4HRS Aspirin Ec (Aspirin) 81 Mg Tablet. 1 Tab PO DAILY Calcium 500 + D Tablet (Calcium Carbonate/Vitamin D3) 1 Each Tablet 1 Tab PO DAILY 30 Days Omeprazole 40 Mg Capsule.dr 1 Cap PO DAILY [olmesartan] 20 Mg PO DAILY Triamterene-Hctz 37.5-25 Mg Tb (Triamterene/Hydrochlorothiazid) 1 Each Tablet 1 Tab PO DAILY Simvastatin 40 Mg Tablet 1 Tab PO QHS Allergies Allergies: Coded Allergies: No Known Drug Allergies (Unverified , 09/04/19) ROS Review of System ROS per HPI, rest negative Physical Exam Physical Exam GEN: NAD HEEN: OM moist NECK Supple CVS: S1S2 RESP: CTA, No use of Acc. Muscle Use GI: BS + ve, Non Tender, Non Distended : No [place] SKIN No rash NEURO AXOX3 Vital Signs Vital Signs Date Time Temp Pulse Resp B/P (MAP) Pulse Ox O2 Delivery O2 Flow Rate FiO2 01/10/20 08:00 Room Air 01/10/20 07:00 97.6 74 18 132/71 (91) 98 97.6 Assessment & Plan RITA - Vasomotor/2/2 Dehydration On Diuretics at home ( MAXZIDE) , held UA and Ct unremarkable ,Improving with IVF Supportive care, IVF, strict I/O avoid nephrotoxins Fatigue /Wt loss - significant Concern for malignancy HTN - BP stable , On Maxzide at home Loss of taste- concerning for Covid-19 syndrome, pending test Labs Labs Laboratory Tests Test 01/09/20 13:20 01/09/20 14:41 01/10/20 04:00 White Blood Count 5.6 x10^3/uL (4.0-11.0) 4.9 x10^3/uL (4.0-11.0) Red Blood Count 3.95 x10^6/uL (4.30-5.70) 3.52 x10^6/uL (4.30-5.70) Hemoglobin 12.5 g/dL (13.0-17.5) 11.3 g/dL (13.0-17.5) Hematocrit 35.9 % (39.0-53.0) 32.2 % (39.0-53.0) Mean Corpuscular Volume 91 fL (79-100) 92 fL (79-100) Mean Corpuscular Hemoglobin 32 pg (25-35) 32 pg (25-35) Mean Corpuscular Hemoglobin Concent 35 g/dL (31-37) 35 g/dL (31-37) Red Cell Distribution Width 13.3 % (11.5-14.5) 13.3 % (11.5-14.5) Platelet Count 253 x10^3/uL (140-400) 188 x10^3/uL (140-400) Neutrophils (%) (Auto) 70 % (31-73) 63 % (31-73) Lymphocytes (%) (Auto) 15 % (24-48) 21 % (24-48) Monocytes (%) (Auto) 11 % (0-9) 12 % (0-9) Eosinophils (%) (Auto) 3 % (0-3) 4 % (0-3) Basophils (%) (Auto) 1 % (0-3) 1 % (0-3) Neutrophils # (Auto) 3.9 x10^3/uL (1.8-7.7) 3.1 x10^3/uL (1.8-7.7) Lymphocytes # (Auto) 0.8 x10^3/uL (1.0-4.8) 1.0 x10^3/uL (1.0-4.8) Monocytes # (Auto) 0.6 x10^3/uL (0.0-1.1) 0.6 x10^3/uL (0.0-1.1) Eosinophils # (Auto) 0.2 x10^3/uL (0.0-0.7) 0.2 x10^3/uL (0.0-0.7) Basophils # (Auto) 0.0 x10^3/uL (0.0-0.2) 0.0 x10^3/uL (0.0-0.2) Sodium Level 130 mmol/L (136-145) 136 mmol/L (136-145) Potassium Level 4.4 mmol/L (3.5-5.1) 4.2 mmol/L (3.5-5.1) Chloride Level 93 mmol/L (98-107) 99 mmol/L (98-107) Carbon Dioxide Level 27 mmol/L (21-32) 24 mmol/L (21-32) Anion Gap 10 (6-14) 13 (6-14) Blood Urea Nitrogen 45 mg/dL (8-26) 37 mg/dL (8-26) Creatinine 2.2 mg/dL (0.7-1.3) 1.4 mg/dL (0.7-1.3) Estimated GFR (Cockcroft-Gault) 29.1 49.0 Glucose Level 100 mg/dL (70-99) 83 mg/dL (70-99) Calcium Level 8.9 mg/dL (8.5-10.1) 8.4 mg/dL (8.5-10.1) Total Bilirubin 0.6 mg/dL (0.2-1.0) 0.3 mg/dL (0.2-1.0) Direct Bilirubin 0.2 mg/dL (0.0-0.2) Aspartate Amino Transf (AST/SGOT) 14 U/L (15-37) 13 U/L (15-37) Alanine Aminotransferase (ALT/SGPT) 19 U/L (16-63) 15 U/L (16-63) Alkaline Phosphatase 60 U/L (46-116) 51 U/L (46-116) Troponin I Quantitative < 0.017 ng/mL (0.000-0.055) Total Protein 6.8 g/dL (6.4-8.2) 5.4 g/dL (6.4-8.2) Albumin 3.8 g/dL (3.4-5.0) 3.2 g/dL (3.4-5.0) Lipase 99 U/L (73-393) Urine Collection Type Unknown Urine Color Yellow Urine Clarity Clear Urine pH 5.0 (<5.0-8.0) Urine Specific [place] 1.015 (1.000-1.030) Urine Protein Negative mg/dL (NEG-TRACE) Urine Glucose (UA) Negative mg/dL (NEG) Urine Ketones (Stick) Trace mg/dL (NEG) Urine Blood Negative (NEG) Urine Nitrite Negative (NEG) Urine Bilirubin Negative (NEG) Urine Urobilinogen Dipstick 0.2 mg/dL (0.2 mg/dL) Urine Leukocyte Esterase Negative (NEG) Urine RBC 0 /HPF (0-2) Urine WBC Occ /HPF (0-4) Urine Bacteria 0 /HPF (0-FEW) Urine Hyaline Casts Few /HPF Urine Mucus Mod /LPF BUN/Creatinine Ratio 26 (6-20) Albumin/Globulin Ratio 1.5 (1.0-1.7) Laboratory Tests Test 01/09/20 13:20 01/09/20 14:41 01/10/20 04:00 White Blood Count 5.6 x10^3/uL (4.0-11.0) 4.9 x10^3/uL (4.0-11.0) Red Blood Count 3.95 x10^6/uL (4.30-5.70) 3.52 x10^6/uL (4.30-5.70) Hemoglobin 12.5 g/dL (13.0-17.5) 11.3 g/dL (13.0-17.5) Hematocrit 35.9 % (39.0-53.0) 32.2 % (39.0-53.0) Mean Corpuscular Volume 91 fL (79-100) 92 fL (79-100) Mean Corpuscular Hemoglobin 32 pg (25-35) 32 pg (25-35) Mean Corpuscular Hemoglobin Concent 35 g/dL (31-37) 35 g/dL (31-37) Red Cell Distribution Width 13.3 % (11.5-14.5) 13.3 % (11.5-14.5) Platelet Count 253 x10^3/uL (140-400) 188 x10^3/uL (140-400) Neutrophils (%) (Auto) 70 % (31-73) 63 % (31-73) Lymphocytes (%) (Auto) 15 % (24-48) 21 % (24-48) Monocytes (%) (Auto) 11 % (0-9) 12 % (0-9) Eosinophils (%) (Auto) 3 % (0-3) 4 % (0-3) Basophils (%) (Auto) 1 % (0-3) 1 % (0-3) Neutrophils # (Auto) 3.9 x10^3/uL (1.8-7.7) 3.1 x10^3/uL (1.8-7.7) Lymphocytes # (Auto) 0.8 x10^3/uL (1.0-4.8) 1.0 x10^3/uL (1.0-4.8) Monocytes # (Auto) 0.6 x10^3/uL (0.0-1.1) 0.6 x10^3/uL (0.0-1.1) Eosinophils # (Auto) 0.2 x10^3/uL (0.0-0.7) 0.2 x10^3/uL (0.0-0.7) Basophils # (Auto) 0.0 x10^3/uL (0.0-0.2) 0.0 x10^3/uL (0.0-0.2) Sodium Level 130 mmol/L (136-145) 136 mmol/L (136-145) Potassium Level 4.4 mmol/L (3.5-5.1) 4.2 mmol/L (3.5-5.1) Chloride Level 93 mmol/L (98-107) 99 mmol/L (98-107) Carbon Dioxide Level 27 mmol/L (21-32) 24 mmol/L (21-32) Anion Gap 10 (6-14) 13 (6-14) Blood Urea Nitrogen 45 mg/dL (8-26) 37 mg/dL (8-26) Creatinine 2.2 mg/dL (0.7-1.3) 1.4 mg/dL (0.7-1.3) Estimated GFR (Cockcroft-Gault) 29.1 49.0 Glucose Level 100 mg/dL (70-99) 83 mg/dL (70-99) Calcium Level 8.9 mg/dL (8.5-10.1) 8.4 mg/dL (8.5-10.1) Total Bilirubin 0.6 mg/dL (0.2-1.0) 0.3 mg/dL (0.2-1.0) Direct Bilirubin 0.2 mg/dL (0.0-0.2) Aspartate Amino Transf (AST/SGOT) 14 U/L (15-37) 13 U/L (15-37) Alanine Aminotransferase (ALT/SGPT) 19 U/L (16-63) 15 U/L (16-63) Alkaline Phosphatase 60 U/L (46-116) 51 U/L (46-116) Troponin I Quantitative < 0.017 ng/mL (0.000-0.055) Total Protein 6.8 g/dL (6.4-8.2) 5.4 g/dL (6.4-8.2) Albumin 3.8 g/dL (3.4-5.0) 3.2 g/dL (3.4-5.0) Lipase 99 U/L (73-393) Urine Collection Type Unknown Urine Color Yellow Urine Clarity Clear Urine pH 5.0 (<5.0-8.0) Urine Specific [place] 1.015 (1.000-1.030) Urine Protein Negative mg/dL (NEG-TRACE) Urine Glucose (UA) Negative mg/dL (NEG) Urine Ketones (Stick) Trace mg/dL (NEG) Urine Blood Negative (NEG) Urine Nitrite Negative (NEG) Urine Bilirubin Negative (NEG) Urine Urobilinogen Dipstick 0.2 mg/dL (0.2 mg/dL) Urine Leukocyte Esterase Negative (NEG) Urine RBC 0 /HPF (0-2) Urine WBC Occ /HPF (0-4) Urine Bacteria 0 /HPF (0-FEW) Urine Hyaline Casts Few /HPF Urine Mucus Mod /LPF BUN/Creatinine Ratio 26 (6-20) Albumin/Globulin Ratio 1.5 (1.0-1.7) Review All relevant outside records, renal labs, imaging studies, telemetry/EKG's were reviewed. Images Images There is mild to moderate concentric left ventricular hypertrophy. The left ventricular systolic function is normal and the ejection fraction is within normal range. The Ejection Fraction is 60%. There is normal LV segmental wall motion. Doppler and Color Flow revealed mild aortic regurgitation. Signed by : Robbie Kaplan, Electronically Approved : 09/04/2019 11:19:00 Examination: CT ABDOMEN PELVIS WO CONTRAST History: Reason: weight loss, kidney failure, abdominal pain / Spl. Instructions: / History: CT scan abdomen-- Findings: Axial images of the abdomen and pelvis were obtained without contrast. Sagittal and coronal reformatted images were provided. Large hiatal hernia is present. Mitral annular calcification is normal. Mild emphysematous involvement of the lung bases posteriorly. Liver, spleen, pancreas, adrenal glands, and kidneys are unremarkable. No hydronephrosis. No radiopaque thickening system calculi. Urinary bladder is unremarkable. Gallbladder fossa is unremarkable. Diverticulosis of the colon is present diffusely. No evidence of obstruction. No extraluminal gas. Significant disc space narrowing from L3 to S1 noted. Transitional L5 vertebra seen. Sacralization of L5. Room Marked diverticulosis of the colon is present. Appendix is not identified. No inflammatory change about the cecum. Significant calcific involvement of the abdominal aorta. Prostate gland is enlarged measuring 5 cm transverse. Bladder is unremarkable. Small inguinal hernias containing omental fat bilaterally noted. Sclerosis of femoral heads bilaterally noted in subchondral location there is an AVN. Femoral head contours are unremarkable. Impression: Diverticulosis. No acute inflammatory process or mass identified. Large hiatal hernia. Mild prostatomegaly. RICH SEQUEIRA MD Jan 10, 2020 11:04
--- NOTE | 2020-01-10 11:19 | PDOC ---
[employer] PROGRESS NOTE Chief Complaint Chief Complaint ACUTE Renal injury Loss of taste, concerning for Covid-19 syndrome Large hiatal hernia is present. Mitral annular calcification is normal. Mild emphysematous involvement of the lung bases Sclerosis of femoral heads bilaterally noted in subchondral location there is an AVN. Unintentional weight loss of 20 lbs, concern for occult malignancy History of Present Illness History of Present Illness 01/09/2023 Patient seen and examined Discussed with RN Chart review Vitals/I&O Vitals/I&O: Vital Signs Date Time Temp Pulse Resp B/P (MAP) Pulse Ox O2 Delivery O2 Flow Rate FiO2 01/10/20 08:00 Room Air 01/10/20 07:00 97.6 74 18 132/71 (91) 98 97.6 I & O 01/09/20 01/09/20 01/10/20 15:00 23:00 07:00 Intake Total 1500 ml Output Total 2 ml Balance 1500 ml -2 ml Physical Exam General: Alert, Oriented X3, Cooperative, No acute distress Extremities: No clubbing, No cyanosis Labs Labs: Laboratory Tests Test 01/09/20 13:20 01/09/20 14:41 01/10/20 04:00 White Blood Count 5.6 x10^3/uL (4.0-11.0) 4.9 x10^3/uL (4.0-11.0) Red Blood Count 3.95 x10^6/uL (4.30-5.70) 3.52 x10^6/uL (4.30-5.70) Hemoglobin 12.5 g/dL (13.0-17.5) 11.3 g/dL (13.0-17.5) Hematocrit 35.9 % (39.0-53.0) 32.2 % (39.0-53.0) Mean Corpuscular Volume 91 fL (79-100) 92 fL (79-100) Mean Corpuscular Hemoglobin 32 pg (25-35) 32 pg (25-35) Mean Corpuscular Hemoglobin Concent 35 g/dL (31-37) 35 g/dL (31-37) Red Cell Distribution Width 13.3 % (11.5-14.5) 13.3 % (11.5-14.5) Platelet Count 253 x10^3/uL (140-400) 188 x10^3/uL (140-400) Neutrophils (%) (Auto) 70 % (31-73) 63 % (31-73) Lymphocytes (%) (Auto) 15 % (24-48) 21 % (24-48) Monocytes (%) (Auto) 11 % (0-9) 12 % (0-9) Eosinophils (%) (Auto) 3 % (0-3) 4 % (0-3) Basophils (%) (Auto) 1 % (0-3) 1 % (0-3) Neutrophils # (Auto) 3.9 x10^3/uL (1.8-7.7) 3.1 x10^3/uL (1.8-7.7) Lymphocytes # (Auto) 0.8 x10^3/uL (1.0-4.8) 1.0 x10^3/uL (1.0-4.8) Monocytes # (Auto) 0.6 x10^3/uL (0.0-1.1) 0.6 x10^3/uL (0.0-1.1) Eosinophils # (Auto) 0.2 x10^3/uL (0.0-0.7) 0.2 x10^3/uL (0.0-0.7) Basophils # (Auto) 0.0 x10^3/uL (0.0-0.2) 0.0 x10^3/uL (0.0-0.2) Sodium Level 130 mmol/L (136-145) 136 mmol/L (136-145) Potassium Level 4.4 mmol/L (3.5-5.1) 4.2 mmol/L (3.5-5.1) Chloride Level 93 mmol/L (98-107) 99 mmol/L (98-107) Carbon Dioxide Level 27 mmol/L (21-32) 24 mmol/L (21-32) Anion Gap 10 (6-14) 13 (6-14) Blood Urea Nitrogen 45 mg/dL (8-26) 37 mg/dL (8-26) Creatinine 2.2 mg/dL (0.7-1.3) 1.4 mg/dL (0.7-1.3) Estimated GFR (Cockcroft-Gault) 29.1 49.0 Glucose Level 100 mg/dL (70-99) 83 mg/dL (70-99) Calcium Level 8.9 mg/dL (8.5-10.1) 8.4 mg/dL (8.5-10.1) Total Bilirubin 0.6 mg/dL (0.2-1.0) 0.3 mg/dL (0.2-1.0) Direct Bilirubin 0.2 mg/dL (0.0-0.2) Aspartate Amino Transf (AST/SGOT) 14 U/L (15-37) 13 U/L (15-37) Alanine Aminotransferase (ALT/SGPT) 19 U/L (16-63) 15 U/L (16-63) Alkaline Phosphatase 60 U/L (46-116) 51 U/L (46-116) Troponin I Quantitative < 0.017 ng/mL (0.000-0.055) Total Protein 6.8 g/dL (6.4-8.2) 5.4 g/dL (6.4-8.2) Albumin 3.8 g/dL (3.4-5.0) 3.2 g/dL (3.4-5.0) Lipase 99 U/L (73-393) Urine Collection Type Unknown Urine Color Yellow Urine Clarity Clear Urine pH 5.0 (<5.0-8.0) Urine Specific [place] 1.015 (1.000-1.030) Urine Protein Negative mg/dL (NEG-TRACE) Urine Glucose (UA) Negative mg/dL (NEG) Urine Ketones (Stick) Trace mg/dL (NEG) Urine Blood Negative (NEG) Urine Nitrite Negative (NEG) Urine Bilirubin Negative (NEG) Urine Urobilinogen Dipstick 0.2 mg/dL (0.2 mg/dL) Urine Leukocyte Esterase Negative (NEG) Urine RBC 0 /HPF (0-2) Urine WBC Occ /HPF (0-4) Urine Bacteria 0 /HPF (0-FEW) Urine Hyaline Casts Few /HPF Urine Mucus Mod /LPF BUN/Creatinine Ratio 26 (6-20) Albumin/Globulin Ratio 1.5 (1.0-1.7) Assessment and Plan Assessmemt and Plan Problems Medical Problems: (1) Acute kidney injury Status: Acute (2) Loss of taste Status: Acute (3) Weight loss Status: Acute ACUTE Renal injury [place] ie loss of taste, concerning for Covid-19 syndrome Large hiatal hernia is present. Mitral annular calcification is normal. Mild emphysematous involvement of the lung bases Sclerosis of femoral heads bilaterally noted in subchondral location there is an AVN. Unintentional weight loss of 20 lbs, concern for occult malignancy Plan covid-19 screen iv fluid support Nephrology and pulmonary medicine following dvt prophylaxis sq lovenox 40 mg sq bid Home meds Full code Appreciate subspecialist Comment Review of Relevant I have reviewed the following items juaquin (where applicable) has been applied. Medications: Current Medications Medications (Trade) Dose Ordered Sig/Ton Route PRN Reason Start Time Stop Time Status Last Admin Dose Admin Sodium Chloride 1,000 ml @ 0 mls/hr 1X ONCE IV 01/09/20 14:00 01/09/20 14:01 DC 01/09/20 14:53 Sodium Chloride 1,000 ml @ 80 mls/hr [id number] IV 01/09/20 20:38 01/10/20 09:27 Enoxaparin Sodium (Lovenox 40mg Syringe) 40 mg BID SQ 01/09/20 21:00 01/10/20 09:26 Justicifation of Admission Dx: Justifications for Admission: Justification of Admission Dx: Yes Acute Renal Failure: 3-Fold Rise in Serum Crea ADRIAN MCGOWAN III DO Jan 10, 2020 11:19
[2020-01-10 15:00] VITALS: BP 142/69
--- NOTE | 2020-01-10 16:50 | NUR ---
SW following. Reviewed chart and spoke with RN and CM. Pt from home. Pt consulted for pulmonology and nephrology. Pt on oral medications and room air. SW to continue following.
--- NOTE | 2020-01-10 18:17 | PDOC ---
PULMONARY PROGRESS NOTES Vitals Vital Signs Date Time Temp Pulse Resp B/P (MAP) Pulse Ox O2 Delivery O2 Flow Rate FiO2 01/10/20 15:00 97.6 79 16 142/69 (93) 96 Room Air 97.6 Labs Laboratory Tests Test 01/09/20 13:20 01/09/20 14:41 01/10/20 04:00 White Blood Count 5.6 x10^3/uL (4.0-11.0) 4.9 x10^3/uL (4.0-11.0) Red Blood Count 3.95 x10^6/uL (4.30-5.70) 3.52 x10^6/uL (4.30-5.70) Hemoglobin 12.5 g/dL (13.0-17.5) 11.3 g/dL (13.0-17.5) Hematocrit 35.9 % (39.0-53.0) 32.2 % (39.0-53.0) Mean Corpuscular Volume 91 fL (79-100) 92 fL (79-100) Mean Corpuscular Hemoglobin 32 pg (25-35) 32 pg (25-35) Mean Corpuscular Hemoglobin Concent 35 g/dL (31-37) 35 g/dL (31-37) Red Cell Distribution Width 13.3 % (11.5-14.5) 13.3 % (11.5-14.5) Platelet Count 253 x10^3/uL (140-400) 188 x10^3/uL (140-400) Neutrophils (%) (Auto) 70 % (31-73) 63 % (31-73) Lymphocytes (%) (Auto) 15 % (24-48) 21 % (24-48) Monocytes (%) (Auto) 11 % (0-9) 12 % (0-9) Eosinophils (%) (Auto) 3 % (0-3) 4 % (0-3) Basophils (%) (Auto) 1 % (0-3) 1 % (0-3) Neutrophils # (Auto) 3.9 x10^3/uL (1.8-7.7) 3.1 x10^3/uL (1.8-7.7) Lymphocytes # (Auto) 0.8 x10^3/uL (1.0-4.8) 1.0 x10^3/uL (1.0-4.8) Monocytes # (Auto) 0.6 x10^3/uL (0.0-1.1) 0.6 x10^3/uL (0.0-1.1) Eosinophils # (Auto) 0.2 x10^3/uL (0.0-0.7) 0.2 x10^3/uL (0.0-0.7) Basophils # (Auto) 0.0 x10^3/uL (0.0-0.2) 0.0 x10^3/uL (0.0-0.2) Sodium Level 130 mmol/L (136-145) 136 mmol/L (136-145) Potassium Level 4.4 mmol/L (3.5-5.1) 4.2 mmol/L (3.5-5.1) Chloride Level 93 mmol/L (98-107) 99 mmol/L (98-107) Carbon Dioxide Level 27 mmol/L (21-32) 24 mmol/L (21-32) Anion Gap 10 (6-14) 13 (6-14) Blood Urea Nitrogen 45 mg/dL (8-26) 37 mg/dL (8-26) Creatinine 2.2 mg/dL (0.7-1.3) 1.4 mg/dL (0.7-1.3) Estimated GFR (Cockcroft-Gault) 29.1 49.0 Glucose Level 100 mg/dL (70-99) 83 mg/dL (70-99) Calcium Level 8.9 mg/dL (8.5-10.1) 8.4 mg/dL (8.5-10.1) Total Bilirubin 0.6 mg/dL (0.2-1.0) 0.3 mg/dL (0.2-1.0) Direct Bilirubin 0.2 mg/dL (0.0-0.2) Aspartate Amino Transf (AST/SGOT) 14 U/L (15-37) 13 U/L (15-37) Alanine Aminotransferase (ALT/SGPT) 19 U/L (16-63) 15 U/L (16-63) Alkaline Phosphatase 60 U/L (46-116) 51 U/L (46-116) Troponin I Quantitative < 0.017 ng/mL (0.000-0.055) Total Protein 6.8 g/dL (6.4-8.2) 5.4 g/dL (6.4-8.2) Albumin 3.8 g/dL (3.4-5.0) 3.2 g/dL (3.4-5.0) Lipase 99 U/L (73-393) Urine Collection Type Unknown Urine Color Yellow Urine Clarity Clear Urine pH 5.0 (<5.0-8.0) Urine Specific [place] 1.015 (1.000-1.030) Urine Protein Negative mg/dL (NEG-TRACE) Urine Glucose (UA) Negative mg/dL (NEG) Urine Ketones (Stick) Trace mg/dL (NEG) Urine Blood Negative (NEG) Urine Nitrite Negative (NEG) Urine Bilirubin Negative (NEG) Urine Urobilinogen Dipstick 0.2 mg/dL (0.2 mg/dL) Urine Leukocyte Esterase Negative (NEG) Urine RBC 0 /HPF (0-2) Urine WBC Occ /HPF (0-4) Urine Bacteria 0 /HPF (0-FEW) Urine Hyaline Casts Few /HPF Urine Mucus Mod /LPF BUN/Creatinine Ratio 26 (6-20) Albumin/Globulin Ratio 1.5 (1.0-1.7) Laboratory Tests Test 01/10/20 04:00 White Blood Count 4.9 x10^3/uL (4.0-11.0) Red Blood Count 3.52 x10^6/uL (4.30-5.70) Hemoglobin 11.3 g/dL (13.0-17.5) Hematocrit 32.2 % (39.0-53.0) Mean Corpuscular Volume 92 fL (79-100) Mean Corpuscular Hemoglobin 32 pg (25-35) Mean Corpuscular Hemoglobin Concent 35 g/dL (31-37) Red Cell Distribution Width 13.3 % (11.5-14.5) Platelet Count 188 x10^3/uL (140-400) Neutrophils (%) (Auto) 63 % (31-73) Lymphocytes (%) (Auto) 21 % (24-48) Monocytes (%) (Auto) 12 % (0-9) Eosinophils (%) (Auto) 4 % (0-3) Basophils (%) (Auto) 1 % (0-3) Neutrophils # (Auto) 3.1 x10^3/uL (1.8-7.7) Lymphocytes # (Auto) 1.0 x10^3/uL (1.0-4.8) Monocytes # (Auto) 0.6 x10^3/uL (0.0-1.1) Eosinophils # (Auto) 0.2 x10^3/uL (0.0-0.7) Basophils # (Auto) 0.0 x10^3/uL (0.0-0.2) Sodium Level 136 mmol/L (136-145) Potassium Level 4.2 mmol/L (3.5-5.1) Chloride Level 99 mmol/L (98-107) Carbon Dioxide Level 24 mmol/L (21-32) Anion Gap 13 (6-14) Blood Urea Nitrogen 37 mg/dL (8-26) Creatinine 1.4 mg/dL (0.7-1.3) Estimated GFR (Cockcroft-Gault) 49.0 BUN/Creatinine Ratio 26 (6-20) Glucose Level 83 mg/dL (70-99) Calcium Level 8.4 mg/dL (8.5-10.1) Total Bilirubin 0.3 mg/dL (0.2-1.0) Aspartate Amino Transf (AST/SGOT) 13 U/L (15-37) Alanine Aminotransferase (ALT/SGPT) 15 U/L (16-63) Alkaline Phosphatase 51 U/L (46-116) Total Protein 5.4 g/dL (6.4-8.2) Albumin 3.2 g/dL (3.4-5.0) Albumin/Globulin Ratio 1.5 (1.0-1.7) Medications Active Scripts Medications Dose Route/Sig Max Daily Dose Days Date Category Zyrtec (Cetirizine Hcl) 10 Mg Tablet 1 Tab PO DAILY 01/09/20 Reported Tylenol (Acetaminophen) 325 Mg Tablet 2 Tab PO PRN Q4HRS 01/09/20 Reported Aspirin Ec (Aspirin) 81 Mg Tablet.dr 1 Tab PO DAILY 01/09/20 Reported Calcium 500 + D Tablet (Calcium Carbonate/Vitamin D3) 1 Each Tablet 1 Tab PO DAILY 30 01/09/20 Reported Omeprazole 40 Mg Capsule.dr 1 Cap PO DAILY 01/09/20 Reported [olmesartan] 20 Mg PO DAILY 01/09/20 Reported Triamterene-Hctz 37.5-25 Mg Tb (Triamterene/Hydrochlorothiazid) 1 Each Tablet 1 Tab PO DAILY 01/09/20 Reported Simvastatin 40 Mg Tablet 1 Tab PO QHS 01/09/20 Reported Impression . Full note dictated SARS-CoV-2 pending underlying COPD compensated ARABELLA CORTEZ MD Jan 10, 2020 18:17
--- NOTE | 2020-01-10 19:05 | CONS ---
DATE OF CONSULTATION: ATTENDING PHYSICIAN: Anatoly Jain MD CONSULTING PHYSICIAN: Arabella Cortez MD REASON FOR CONSULTATION: The patient seen in pulmonary consultation at the request of Dr. Jain for increasing shortness of air. HISTORY OF PRESENT ILLNESS: The patient is a 79-year-old that was seen by Dr. Camp in the office. He has some lab work. Apparently, he was called and told to come to the Emergency Room. His labs were abnormal. The patient had a BUN and creatinine, which were elevated to 45 and 2.2. Sodium was low. The patient was feeling fatigued. He was slightly increasing more short of breath. He also lost approximately 20 pounds in the last month. Denied any fever or chills. No COVID-19 exposures. The patient is currently being evaluated by Nephrology for his acute kidney injury. PAST MEDICAL HISTORY: 1. Possible COPD, quit in 1979. He denied experiencing severe acute exacerbations of chronic obstructive pulmonary disease. 2. Recent knee replacement. 3. Gastroesophageal reflux. 4. Hyperlipidemia. 5. Hypertension. PAST SURGICAL HISTORY: Status post appendectomy, knee replacement, rotator cuff. SOCIAL HISTORY: He is a former smoker. FAMILY HISTORY: Hyperlipidemia. REVIEW OF SYSTEMS: As indicated above, otherwise, a 10-point system was reviewed and negative. CONSTITUTIONAL: No fever or chills. EYES: No change in visual acuity. HENT: No nasal congestion or sore throat. PULMONARY: As indicated above. CARDIOVASCULAR: No chest pain. No pressure. GASTROINTESTINAL: No nausea, no vomiting. GENITOURINARY: No dysuria or frequency. MUSCULOSKELETAL: Generalized weakness. No localized muscle aches or joint pains. SKIN: No new skin rashes. ALLERGIES: No known drug allergies. CURRENT MEDICATION: List was reviewed. PHYSICAL EXAMINATION: VITAL SIGNS: Stable. O2 saturation was greater than 92% on room air, saturation 96%. He did have saturation of 87% at one point. HEENT: Eyes, the sclerae were nonicteric. NECK: Jugular venous distention was not elevated. No lymphadenopathy. CHEST: Full expansion. LUNGS: Adequate flow, no wheezes. CARDIOVASCULAR: Regular rate and rhythm with S1, S2, no S3. ABDOMEN: Soft, nontender, nondistended. EXTREMITIES: No clubbing, cyanosis or edema. NEUROLOGIC: The patient was awake, alert, following commands. A detailed neuro exam was not performed. LABORATORY DATA: Electrolytes were noted. BUN and creatinine were elevated. UA was noted. SARS-CoV-2 pending. IMPRESSION: 1. Progressive dyspnea secondary to underlying chronic obstructive pulmonary disease, generalized weakness and acute renal failure. 2. Chronic obstructive pulmonary disease, unknown FEV1. 3. Tobacco dependent, in remission. 4. Acute renal failure. 5. Weight loss. 6. Loss of taste. PLAN: 1. The patient will be supported with IV fluids. 2. Follow Nephrology input. 3. SARS-CoV-2 pending. 4. Respiratory status is otherwise compensated, no additional workup needed. I do appreciate the privilege in sharing the patient's care. ARABELLA CORTEZ MD DR: DENNYS/lorin JOB#: [id number] / [id number]
[2020-01-10 20:13] VITALS: BP 144/69
--- NOTE | 2020-01-10 21:06 | RAD ---
STUDY: Complete renal sonogram INDICATION: Acute renal failure. COMPARISON: CT abdomen/pelvis 01/09/2020 TECHNIQUE: Real-time grayscale and color Doppler sonographic evaluation of both kidneys. The bladder was also evaluated. FINDINGS: Right kidney: Measures 11.3 cm in length. Within normal limits cortical thickness and echogenicity. No hydronephrosis. Left kidney: Measures 9.9 cm in length. Within normal limits cortical thickness and echogenicity. No hydronephrosis. Bladder: Partially distended. No localized wall thickening or layering debris. Miscellaneous: None. IMPRESSION: Unremarkable sonographic appearance of both kidneys. No abnormality of the bladder noting incomplete distention. Electronically signed by: XIOMY MOFFETT MD (01/10/2020 9:03 PM) [id number]
[2020-01-10 23:00] VITALS: BP 135/70
[2020-01-11 03:00] VITALS: BP 127/72
[2020-01-11 06:27] LABS: CALCIUM 8.1 mg/dL (8.5-10.1); GFR 72.3; POTASSIUM 4.3 mmol/L (3.5-5.1)
[2020-01-11 07:00] VITALS: BP 136/77
[2020-01-11] MEDS: ENOXAPARIN 40 MG/0.4 ML SYRINGE. SQ SCH (08:27)
--- NOTE | 2020-01-11 08:42 | PDOC ---
PULMONARY PROGRESS NOTES Subjective Patient is not short of air wishes to be discharged home Vitals Vital Signs Date Time Temp Pulse Resp B/P (MAP) Pulse Ox O2 Delivery O2 Flow Rate FiO2 01/11/20 03:00 97.5 80 16 127/72 (90) 96 Room Air 97.5 ROS: No Nausea, No Chest Pain, No Abdominal Pain, No Increase Cough Lungs: Clear Cardiovascular: S1, S2 Abdomen: Soft Neuro Exam: Alert Extremities: No Edema Skin: Warm Labs Laboratory Tests Test 01/09/20 13:20 01/09/20 14:41 01/10/20 04:00 01/11/20 04:58 White Blood Count 5.6 x10^3/uL (4.0-11.0) 4.9 x10^3/uL (4.0-11.0) Red Blood Count 3.95 x10^6/uL (4.30-5.70) 3.52 x10^6/uL (4.30-5.70) Hemoglobin 12.5 g/dL (13.0-17.5) 11.3 g/dL (13.0-17.5) Hematocrit 35.9 % (39.0-53.0) 32.2 % (39.0-53.0) Mean Corpuscular Volume 91 fL (79-100) 92 fL (79-100) Mean Corpuscular Hemoglobin 32 pg (25-35) 32 pg (25-35) Mean Corpuscular Hemoglobin Concent 35 g/dL (31-37) 35 g/dL (31-37) Red Cell Distribution Width 13.3 % (11.5-14.5) 13.3 % (11.5-14.5) Platelet Count 253 x10^3/uL (140-400) 188 x10^3/uL (140-400) Neutrophils (%) (Auto) 70 % (31-73) 63 % (31-73) Lymphocytes (%) (Auto) 15 % (24-48) 21 % (24-48) Monocytes (%) (Auto) 11 % (0-9) 12 % (0-9) Eosinophils (%) (Auto) 3 % (0-3) 4 % (0-3) Basophils (%) (Auto) 1 % (0-3) 1 % (0-3) Neutrophils # (Auto) 3.9 x10^3/uL (1.8-7.7) 3.1 x10^3/uL (1.8-7.7) Lymphocytes # (Auto) 0.8 x10^3/uL (1.0-4.8) 1.0 x10^3/uL (1.0-4.8) Monocytes # (Auto) 0.6 x10^3/uL (0.0-1.1) 0.6 x10^3/uL (0.0-1.1) Eosinophils # (Auto) 0.2 x10^3/uL (0.0-0.7) 0.2 x10^3/uL (0.0-0.7) Basophils # (Auto) 0.0 x10^3/uL (0.0-0.2) 0.0 x10^3/uL (0.0-0.2) Sodium Level 130 mmol/L (136-145) 136 mmol/L (136-145) 135 mmol/L (136-145) Potassium Level 4.4 mmol/L (3.5-5.1) 4.2 mmol/L (3.5-5.1) 4.3 mmol/L (3.5-5.1) Chloride Level 93 mmol/L (98-107) 99 mmol/L (98-107) 100 mmol/L (98-107) Carbon Dioxide Level 27 mmol/L (21-32) 24 mmol/L (21-32) 25 mmol/L (21-32) Anion Gap 10 (6-14) 13 (6-14) 10 (6-14) Blood Urea Nitrogen 45 mg/dL (8-26) 37 mg/dL (8-26) 18 mg/dL (8-26) Creatinine 2.2 mg/dL (0.7-1.3) 1.4 mg/dL (0.7-1.3) 1.0 mg/dL (0.7-1.3) Estimated GFR (Cockcroft-Gault) 29.1 49.0 72.3 Glucose Level 100 mg/dL (70-99) 83 mg/dL (70-99) 94 mg/dL (70-99) Calcium Level 8.9 mg/dL (8.5-10.1) 8.4 mg/dL (8.5-10.1) 8.1 mg/dL (8.5-10.1) Total Bilirubin 0.6 mg/dL (0.2-1.0) 0.3 mg/dL (0.2-1.0) Direct Bilirubin 0.2 mg/dL (0.0-0.2) Aspartate Amino Transf (AST/SGOT) 14 U/L (15-37) 13 U/L (15-37) Alanine Aminotransferase (ALT/SGPT) 19 U/L (16-63) 15 U/L (16-63) Alkaline Phosphatase 60 U/L (46-116) 51 U/L (46-116) Troponin I Quantitative < 0.017 ng/mL (0.000-0.055) Total Protein 6.8 g/dL (6.4-8.2) 5.4 g/dL (6.4-8.2) Albumin 3.8 g/dL (3.4-5.0) 3.2 g/dL (3.4-5.0) Lipase 99 U/L (73-393) Urine Collection Type Unknown Urine Color Yellow Urine Clarity Clear Urine pH 5.0 (<5.0-8.0) Urine Specific [place] 1.015 (1.000-1.030) Urine Protein Negative mg/dL (NEG-TRACE) Urine Glucose (UA) Negative mg/dL (NEG) Urine Ketones (Stick) Trace mg/dL (NEG) Urine Blood Negative (NEG) Urine Nitrite Negative (NEG) Urine Bilirubin Negative (NEG) Urine Urobilinogen Dipstick 0.2 mg/dL (0.2 mg/dL) Urine Leukocyte Esterase Negative (NEG) Urine RBC 0 /HPF (0-2) Urine WBC Occ /HPF (0-4) Urine Bacteria 0 /HPF (0-FEW) Urine Hyaline Casts Few /HPF Urine Mucus Mod /LPF BUN/Creatinine Ratio 26 (6-20) Albumin/Globulin Ratio 1.5 (1.0-1.7) Laboratory Tests Test 01/11/20 04:58 Sodium Level 135 mmol/L (136-145) Potassium Level 4.3 mmol/L (3.5-5.1) Chloride Level 100 mmol/L (98-107) Carbon Dioxide Level 25 mmol/L (21-32) Anion Gap 10 (6-14) Blood Urea Nitrogen 18 mg/dL (8-26) Creatinine 1.0 mg/dL (0.7-1.3) Estimated GFR (Cockcroft-Gault) 72.3 Glucose Level 94 mg/dL (70-99) Calcium Level 8.1 mg/dL (8.5-10.1) Medications Active Scripts Medications Dose Route/Sig Max Daily Dose Days Date Category Zyrtec (Cetirizine Hcl) 10 Mg Tablet 1 Tab PO DAILY 01/09/20 Reported Tylenol (Acetaminophen) 325 Mg Tablet 2 Tab PO PRN Q4HRS 01/09/20 Reported Aspirin Ec (Aspirin) 81 Mg Tablet.dr 1 Tab PO DAILY 01/09/20 Reported Calcium 500 + D Tablet (Calcium Carbonate/Vitamin D3) 1 Each Tablet 1 Tab PO DAILY 30 01/09/20 Reported Omeprazole 40 Mg Capsule.dr 1 Cap PO DAILY 01/09/20 Reported [olmesartan] 20 Mg PO DAILY 01/09/20 Reported Triamterene-Hctz 37.5-25 Mg Tb (Triamterene/Hydrochlorothiazid) 1 Each Tablet 1 Tab PO DAILY 01/09/20 Reported Simvastatin 40 Mg Tablet 1 Tab PO QHS 01/09/20 Reported Impression . IMPRESSION: 1. Progressive dyspnea secondary to underlying chronic obstructive pulmonary disease, generalized weakness and acute renal failure. 2. Chronic obstructive pulmonary disease, unknown FEV1. 3. Tobacco dependent, in remission. 4. Acute renal failure., Per 5. Weight loss. 6. Loss of taste. 7. SARS-CoV-2 negative Plan . Respiratory status compensated, follow nephrology input, home when okay with nephrology ARABELLA CORTEZ MD Jan 11, 2020 08:42
--- NOTE | 2020-01-11 10:50 | PDOC ---
SUBJECTIVE ROS stable OBJECTIVE Vital Signs Vital Signs Date Time Temp Pulse Resp B/P (MAP) Pulse Ox O2 Delivery O2 Flow Rate FiO2 01/11/20 07:00 97.6 71 18 136/77 (96) 99 Room Air 97.6 I & 0 Intake and Output 01/11/20 07:00 Intake Total 1810 ml Output Total 900 ml Balance 910 ml Intake Oral 1810 ml Output Urine Total 900 ml # Voids 1 # Bowel Movements 1 PHYSICAL EXAM Physical Exam GEN: NAD HEEN: OM moist NECK Supple CVS: S1S2 RESP: CTA, No use of Acc. Muscle Use GI: BS + ve, Non Tender, Non Distended : No [place] SKIN No rash NEURO AXOX3 DIAGNOSIS/ASSESSMENT Assessment & Plan RITA - Vasomotor/2/2 Dehydration On Diuretics at home ( MAXZIDE) , held UA and Ct unremarkable ,Renal US unremarkable US reported partial bladder distension, consider bladder scan for PVR if any concerns for urinary retention RITA Resolved ,Supportive care, I/O avoid nephrotoxins Fatigue /Wt loss - significant Concern for malignancy HTN - BP stable , On Maxzide at home BP stable Loss of taste - per primary COMMENT/RELEVANT DATA Meds Current Medications Medications (Trade) Dose Ordered Sig/Ton Start Time Stop Time Status Last Admin Dose Admin Acetaminophen (Tylenol) 650 mg PRN Q4HRS PRN 01/09/20 20:45 01/10/20 15:31 650 MG Albuterol Sulfate (Ventolin Neb Soln) 2.5 mg PRN Q4HRS PRN 01/09/20 20:45 Docusate Sodium (Colace) 100 mg PRN BID PRN 01/09/20 20:45 Enoxaparin Sodium (Lovenox 40mg Syringe) 40 mg BID 01/09/20 21:00 01/11/20 08:27 40 MG Guaifenesin (Robitussin) 200 mg PRN Q4HRS PRN 01/09/20 20:45 Ondansetron HCl (Zofran) 4 mg PRN Q4HRS PRN 01/09/20 20:45 Sodium Chloride 1,000 ml @ 80 mls/hr [id number] 01/09/20 20:38 01/10/20 20:44 80 MLS/HR Sodium Chloride (Normal Saline Flush) 3 ml QSHIFT PRN 01/09/20 20:45 Lab Laboratory Tests Test 01/11/20 04:58 Sodium Level 135 mmol/L (136-145) Potassium Level 4.3 mmol/L (3.5-5.1) Chloride Level 100 mmol/L (98-107) Carbon Dioxide Level 25 mmol/L (21-32) Anion Gap 10 (6-14) Blood Urea Nitrogen 18 mg/dL (8-26) Creatinine 1.0 mg/dL (0.7-1.3) Estimated GFR (Cockcroft-Gault) 72.3 Glucose Level 94 mg/dL (70-99) Calcium Level 8.1 mg/dL (8.5-10.1) Results All relevant outside records, renal labs, imaging studies, telemetry/EKG's were reviewed. Justicifation of Admission Dx: Justifications for Admission: Justification of Admission Dx: Yes Acute Renal Failure: 3-Fold Rise in Serum RICH Gutiérrez MD Jan 11, 2020 10:50
[2020-01-11] MEDS: IV NORMAL SALINE 1000ML BAG 1,000 ML IV SCH (11:09)
[2020-01-11 11:43] VITALS: BP 146/85
--- NOTE | 2020-01-11 12:47 | DS ---
DATE OF DISCHARGE: 01/11/2020 ADMISSION DIAGNOSIS: Acute kidney injury. DISCHARGE DIAGNOSIS: Resolving acute kidney injury. HOSPITAL COURSE: The patient is a pleasant 79-year-old male who presented with an acute kidney injury. He was fatigued. He had lost some weight. He had a knee replacement a month ago. He just was not feeling well. His initial creatinine was 2.2. We admitted the patient, gave him IV fluids. We are checking for COVID-19. Consulted Nephrology and Pulmonary. Over the past few days, he seemed to return to his baseline. This morning, I saw and examined, he is doing great, he wants to go home. I discussed the case with the case management team. We plan to discharge with close outpatient followup. DISPOSITION: Home. ACTIVITY: As tolerated. DIET: Low sodium. MEDICATIONS: Please see the MRAD. TOTAL TIME: 32 minutes. NAFISAL Antwan MCGOWAN DO DR: KAITLIN/lorin JOB#: [id number] / [id number]
--- NOTE | 2020-01-11 15:12 | NUR ---
patient's COVID test is negative, faxed report received from Dr. Camp's office
--- NOTE | 2020-01-11 15:13 | NUR ---
Discharge Note: MITA LEAHY [address] Discharge instructions and discharge home medications reviewed with patient and a copy given. All questions have been answered and understanding verbalized. The following instructions and handouts were given: Take home meds as directed Follow up with PCP in a week handout on Acute Kidney Injury Watch out for worsening of symptoms. Discontinued lines and drains: peripheral IV intact, no complications noted Patient discharged to home with self-care via wheelchair accompanied by the patient's at 1435.
--- NOTE | 2020-01-11 16:51 | NUR ---
SW following. Spoke with RN and reviewed chart. Pt to discharge home today with no SW needs per RN.
== END 2020-01-11 14:35 | disposition home or self-care (01) | DRG 640 ==
LOC: ER 11:49 → ED HOLD 16:20 → 6 SOUTH 17:54
PROVIDERS: ADMIT Family Medicine; ATTEND Family Medicine
DX: E86.0 Dehydration (principal); N17.0 Acute kidney failure with tubular necrosis; M87.852 Other osteonecrosis, left femur; M87.851 Other osteonecrosis, right femur; E78.00 Pure hypercholesterolemia, unspecified; I11.9 Hypertensive heart disease without heart failure; K40.90 Unilateral inguinal hernia, without obstruction or gangrene, not specified as recurrent; K44.9 Diaphragmatic hernia without obstruction or gangrene; Z96.659 Presence of unspecified artificial knee joint; K21.9 Gastro-esophageal reflux disease without esophagitis; H53.8 Other visual disturbances; R43.9 Unspecified disturbances of smell and taste; R63.4 Abnormal weight loss; R43.2 Parageusia; J43.0 Unilateral pulmonary emphysema [MacLeod's syndrome]; M43.27 Fusion of spine, lumbosacral region; K57.30 Diverticulosis of large intestine without perforation or abscess without bleeding; N40.0 Benign prostatic hyperplasia without lower urinary tract symptoms; Z20.828 Contact with and (suspected) exposure to other viral communicable diseases; Z82.49 Family history of ischemic heart disease and other diseases of the circulatory system; Z90.49 Acquired absence of other specified parts of digestive tract; Z87.891 Personal history of nicotine dependence; Z83.49 Family history of other endocrine, nutritional and metabolic diseases
CPT/HCPCS: 36415; 71046; 74176; 76770; 80048; 80053; 80076; 81001; 83690; 84484; 85025; 87040; 93005; 96360; 96361; 99285; J1650; J7030; G0378

== ENCOUNTER → 2021-08-05 | Outpatient (CLI) | payer MEDICARE ==
[~2021-08-05] MED LIST changes: +ACET325T9 PO; +ASPI-886 PO; +CALC-31 PO; +CETI10TA74 PO; +OMEP40CA7 PO; -REGADENOSON 0.4 MG/5 ML DISP.SYRIN. IV ONE; +SIMV40TA18 PO; +TRIA1TAB3 PO; +olmesartan PO
--- NOTE | 2021-08-06 16:22 | CARD ---
MR#: [id number] Date of Study: 08/05/2021 Ordering Physician: KAYLIE LARKIN, Referring Physician: KALYIE LARKIN, Tech: Iwona Mendez, [facility] APPROVED REPORT EXAM: Two-dimensional and M-mode echocardiogram with Doppler and color Doppler. Other Information Quality : AverageHR: 86bpm INDICATION Aortic Valve Disease RISK FACTORS Hypertension Hyperlipidemia 2D DIMENSIONS RVDd3.6 (2.9-3.5cm)Left Atrium(2D)2.1 (1.6-4.0cm) IVSd1.3 (0.7-1.1cm)Aortic Root(2D)3.6 (2.0-3.7cm) LVDd4.5 (3.9-5.9cm)LVOT Diameter2.0 (1.8-2.4cm) PWd1.0 (0.7-1.1cm)LVDs2.8 (2.5-4.0cm) FS (%) 37.1 %SV61.4 ml LVEF(%)67.2 (>50%) Aortic Valve AoV Peak Floyd.234.5cm/sAoV VTI47.0cm AO Peak GR.22.0mmHgLVOT Peak Floyd.126.9cm/s LVOT VTI 24.52cmAO Mean GR.12mmHg MYA (VMAX)1.94gd8VPS (VTI)1.72cm2 AI P 1/2 Wtsf183nm Mitral Valve MV E Rcoufroi409.1cm/sMV DECEL [id number] MV A Dzxrceqs301.3cm/sMV E Mean Gr.4mmHg MV DPN86orE/A Ratio1.0 MVA (PHT)4.50cm2 TDI E/Lateral E'13.6E/Medial E'15.9 Pulmonary Valve PV Peak Kljazgti22.4cm/sPV Peak Grad.3mmHg Tricuspid Valve TR P. Jgmmeqac888zo/sRAP [id number] TR Peak Gr.77qvWzGEDE25kzYb Pulmonary Vein S1 Slicxpii87.6cm/sD2 Qecygmon33.5cm/s PVa [id number] LEFT VENTRICLE The left ventricle is normal size. There is mild to moderate concentric left ventricular hypertrophy. The left ventricular systolic function is normal. The Ejection Fraction is 65%. There is normal LV s egmental wall motion. Transmitral Doppler flow pattern is Grade II-pseudonormal filling dynamics. RIGHT VENTRICLE The right ventricle is normal size. There is normal right ventricular wall thickness. The right ventr icular systolic function is normal. ATRIA The left atrium is mildly dilated. The right atrium is borderline dilated. The interatrial septum is intact with no evidence for an atrial septal defect or patent foramen ovale as noted on 2-D or Dopple r imaging. AORTIC VALVE The aortic valve is mildly to moderately thickened. Doppler and Color Flow revealed mild to moderate aortic regurgitation. There is no significant aortic valvular stenosis. Calculated aortic valve area is 2.0 cm2 with maximum pressure gradient of 26 mmHg and mean pressure gradient of 13 mmHg. MITRAL VALVE The mitral valve is normal in structure and function. There is no evidence of mitral valve prolapse. There is no mitral valve stenosis. Doppler and Color-flow revealed trace mitral regurgitation. TRICUSPID VALVE The tricuspid valve is normal in structure and function. Doppler and Color Flow revealed mild tricusp id regurgitation with an estimated PAP of 43 mmHg. PULMONIC VALVE The pulmonic valve is not well visualized. Doppler and Color Flow revealed trace mild pulmonic valvul ar regurgitation. GREAT VESSELS The aortic root is normal in size. The ascending aorta is Mildly dilated measuring 3.7 cm. The IVC is normal in size and collapses >50% with inspiration. PERICARDIAL EFFUSION There is no evidence of significant pericardial effusion. Critical Notification Critical Value: No <Conclusion> The left ventricular systolic function is normal. The Ejection Fraction is 65%. There is normal LV segmental wall motion. Mild to moderate aortic regurgitation. Trace mitral regurgitation. Mild tricuspid regurgitation with an estimated PAP of 43 mmHg. There is no evidence of significant pericardial effusion. Signed by : Kaylie Larkin, Electronically Approved : 08/06/2021 16:21:51
== END ==
LOC: ECHO 14:59
PROVIDERS: ATTEND Internal Medicine Cardiovascular Disease
DX: I08.8 Other rheumatic multiple valve diseases (principal); I77.819 Aortic ectasia, unspecified site
CPT/HCPCS: 93306; C8929